=== PATIENT | female | born 1970 | race Caucasian/White ===

== ENCOUNTER → 2016-10-02 | Outpatient (REF) ==
[~2016-10-02] MED LIST: ASPIRIN 81M81 MG/TA2 PO; CLARITIN 1010 MG/TAB PO; DULERA1 ARO IH; MULTIPLE VITAMI1 CAP PO; NEXIUM 20MG20 MG PO; SYNTHROID 0.0.025 MG PO; ZANTAC 150MG T150 MG PO
== END ==
LOC: ZLAB.WCH 10:55
DX: Z01.89 Encounter for other specified special examinations (principal)

== ENCOUNTER → 2017-09-29 | Outpatient (REF) ==
[2017-09-29 09:39] LABS: THYROID STIMULATING HORMONE 4.2 uIU/mL (0.465-4.680)
== END ==
LOC: ZLAB.WCH 08:45
PROVIDERS: Family Medicine
DX: Z01.89 Encounter for other specified special examinations (principal)

== ENCOUNTER → 2018-06-18 | Outpatient (REF) | LOC: ZLAB.WCH 19:25 | DX: Z01.89 Encounter for other specified special examinations (principal) ==

== ENCOUNTER → 2019-09-24 | Outpatient (CLI) | payer OTHER | LOC: COL.PUL 08-14 13:00 | DX: R05 Cough (principal) ==

== ENCOUNTER → 2019-10-22 | Outpatient (CLI) | payer OTHER | LOC: COL.PUL 12:54 | DX: R05 Cough (principal); R06.02 Shortness of breath | CPT/HCPCS: J7674 ==

== ENCOUNTER 2020-05-08 10:41 | Inpatient (IN) | payer OTHER ==
[~2020-05-08] VITALS: Ht 157.5 cm; Wt 102.8 kg
[~2020-05-08 10:41] MED LIST changes: +PREDNISONE20 MG PO; +TUSS PO
[2020-05-08 11:23] LABS: BASO % 0.1 % (0.0-2.0); EOS % 0.1 % (0-4.0); GRAN # 9.1 (1.4-6.5); GRAN % 78.2 % (42.2-75.2); HEMATOCRIT 41.5 % (37.0-47.0); HEMOGLOBIN 14.4 g/dl (12.5-16.0); LYMPH # 1.7 (1.2-3.4); LYMPH % 14.6 % (20.0-51.0); MEAN CELL VOLUME 86 fl (80.0-100.0); MEAN CORPUSCULAR HEMOGLOBIN 30 pg (27.0-31.0); MEAN CORPUSCULAR HGB CONC 35 g/dl (33.0-37.0); MEAN PLATELET VOLUME 10.1 fl (7.4-10.4); MONO # 0.7 (0.1-0.6); MONO % 6.1 % (1.7-9.3); PLATELET COUNT 283 K/mm3 (130-400); RED BLOOD COUNT 4.83 M/mm3 (4.10-5.30); REDCELL DISTRIBUTION WIDTH-CV 13.3 % (11.5-14.5)
[2020-05-08 11:30] LABS: BILIRUBIN,TOTAL 0.5 mg/dL (0.0-1.0); CALCIUM 8.6 mg/dL (8.4-10.2); CREATININE, serum 0.63 (0.52-1.25); TOTAL PROTEIN 7.4 gm/dL (6.4-8.2)
[2020-05-08 11:35] LABS: POTASSIUM 2.6 mmol/L (3.4-5.0)
[2020-05-08 13:44] LABS: PROTHROMBIN TIME 11.2 SECONDS (9.7-12.8)
[2020-05-08 13:45] VITALS: BP 135/77; PULSE 68; TEMP 98.7
[2020-05-08 13:48] LABS: C-REACTIVE PROTEIN 4.4 mg/dL (0.0-0.9); MAGNESIUM 2.2 mg/dL (1.6-2.3)
[2020-05-08 13:52] LABS: D-DIMER < 200.00 ng/mLDDu (200-230)
[2020-05-08] MEDS ORDERED: BREO IH (13:55)
[2020-05-08] MEDS ORDERED: TESSALON PERLE200 MG PO (13:56)
[2020-05-08] MEDS ORDERED: MUCINEX 60600 MG/TA1 PO (13:57)
[2020-05-08] MEDS ORDERED: HYDRODIURIL50 MG PO (13:58)
--- NOTE | 2020-05-08 14:12 | NUR ---
PATIENT ASSESSMENT COMPLETED. SHE IS TALKATIVE BUT DOES GET TO COUGHING WHEN SHE TALKS ALONG TIME
[2020-05-08 15:05] LABS: COLLECTION METHOD CLEAN CATCH
[2020-05-08 15:10] LABS: PH 7 (5-8); SQUAMOUS EPITHELIAL 0-2 /hpf; URINE APPEARANCE Clear; URINE BACTERIA None Seen /hpf; URINE BILIRUBIN Negative (NEGATIVE); URINE BLOOD Negative (NEGATIVE); URINE COLOR Straw; URINE GLUCOSE Negative (NEGATIVE); URINE KETONE Negative (NEGATIVE); URINE LEUKOCYTE ESTERASE Negative (NEGATIVE); URINE NITRATE Negative (NEGATIVE); URINE PROTEIN(semi-quant) Negative (NEGATIVE); URINE RBC None Seen /hpf; URINE UROBILINOGEN Negative (NEGATIVE)
[2020-05-08 16:25] VITALS: BP 119/69; PULSE 73; TEMP 98.4
--- NOTE | 2020-05-08 16:31 | NUR ---
PATIENT HAS A TERRIBLE HEADACHE.PRN TYLENOL GIVEN AT THIS TIME PER HER REUQEST ALONG WITH COUGH MEDICATION
[2020-05-08 19:45] VITALS: BP 115/67; PULSE 62; TEMP 98.5
--- NOTE | 2020-05-08 20:30 | NUR ---
Initial shift assessment done- denies pain at this time, does have an occasional cough, non productive, o2 at 2L/nc, pt denies SOB, [id number]%,, repeat potassium level came back as 3.4 , will follow the protocol at this time for replacement. Respiratory did bring in an I.S and pt is using -
[2020-05-08 23:57] VITALS: BP 140/66; PULSE 59; TEMP 97.8
[2020-05-09 03:20] VITALS: BP 100/52; PULSE 58; TEMP 98.2
--- NOTE | 2020-05-09 05:23 | NUR ---
Did not get much sleep last night-- denies nausea at this time, eating some saltine crackers, o2 sats were 91-92% when sleeping so was increased to 2.5L/nc, sats now 95%-96% on the 2.5L,,, cough medicine given every 6 hours as needed.
[2020-05-09 07:21] LABS: BASO % 0.1 % (0.0-2.0); GRAN # 11.6 (1.4-6.5); HEMATOCRIT 40.5 % (37.0-47.0); HEMOGLOBIN 13.9 g/dl (12.5-16.0); LYMPH # 1.2 (1.2-3.4); LYMPH % 9.1 % (20.0-51.0); MEAN CELL VOLUME 88 fl (80.0-100.0); MEAN CORPUSCULAR HEMOGLOBIN 30 pg (27.0-31.0); MEAN CORPUSCULAR HGB CONC 34 g/dl (33.0-37.0); MEAN PLATELET VOLUME 10.3 fl (7.4-10.4); MONO # 0.6 (0.1-0.6); MONO % 4.1 % (1.7-9.3); PLATELET COUNT 303 K/mm3 (130-400); RED BLOOD COUNT 4.63 M/mm3 (4.10-5.30); REDCELL DISTRIBUTION WIDTH-CV 13.4 % (11.5-14.5)
[2020-05-09 07:32] LABS: ALBUMIN 3.9 gm/dL (3.5-5.0); BILIRUBIN,TOTAL 0.5 mg/dL (0.0-1.0); CALCIUM 8.7 mg/dL (8.4-10.2); CREATININE, serum 0.54 (0.52-1.25); POTASSIUM 3.2 mmol/L (3.4-5.0); TOTAL PROTEIN 7.4 gm/dL (6.4-8.2)
[2020-05-09 08:45] VITALS: BP 126/59; PULSE 77; TEMP 98.2
--- NOTE | 2020-05-09 09:45 | NUR ---
PATIENT ASSESSMENT COMPLETED. SHE DENIES ANY PAIN BUT DOES HAVE A COUGH TO EARLY FOR MEDICATION
--- NOTE | 2020-05-09 11:08 | NUR ---
CALLED VENITA MCKEON REGARDING [employer] AND UNABLE TO READ TELE. SHE STATES WE ARE DISCONTINUING TELE.
[2020-05-09 12:05] VITALS: BP 119/72; PULSE 68; TEMP 98.3
--- NOTE | 2020-05-09 13:54 | NUR ---
Plan to go home with spouse Myrna Jimenez as support . Patient reports that she resides in [place] with her but does not have a DPOA. Patient reports that she has a nueblizer-prn. Patient reports that Bubba Kwon is her PCPand she prefers [facility] for medications. Patient denied having any care concerns but wants to continue to work towards lung capacity. Will continue to follow care for additional needs. Offered supports for home.
--- NOTE | 2020-05-09 14:30 | NUR ---
PATIENT UP IN THE CHAIR IN HER ROOM. SHE DENIES NEEDS AT THIS TIME.
--- NOTE | 2020-05-09 16:13 | NUR ---
PATIENT CALLED OUT TO THE DESK REPORTING FEELING A LITTLE DISORIENTED AND DIZZY AFTER GOING TO THE RESTROOM. I HAVE TURNED HER OXYGEN BACK UP TO 2.5L. HER OXYGEN SAT WAS 95% ON THE 1.5. SHE IS NOW RESTING IN BED. VSS. SHE WILL CALL THE NEXT TIME SHE GETS UP OUT OF BED
[2020-05-09 16:15] VITALS: BP 140/76; PULSE 73; TEMP 98.1
--- NOTE | 2020-05-09 16:22 | NUR ---
NOTIFIED DR. ROQUE OF PATIENT STATUS. WILL CONTINUE TO MONITOR HER
--- NOTE | 2020-05-09 17:00 | NUR ---
PATIENT REPORTS THAT SHE THINKS THAT THE FEELING THAT SHE EXPERIENCED WAS BECAUSE SHE HAD JUST TAKEN 2 PUFFS OFF HER ALBUTERAL INHALER AND SOMETIMES THAT HAPPENS AT HOME ALSO. SHE FEELS THAT THE INCENTIVE SPIROMETER IS WORKING WELL TO HELP OPEN HER LUNGS UP AND SHE WAS ABLE TO TAKE TWO DEEP INHALES WITH THE ALBUTEROL. FEELING WELL NOW.
--- NOTE | 2020-05-09 17:45 | NUR ---
PATIENT UP IN BED EATING SUPPER SHE DENIES ANY TINGLING IN HER FACE AND IS FEELING BETTER AGAIN. NO OTHER NEEDS AT THIS TIME
[2020-05-09 20:05] VITALS: BP 109/60; PULSE 68; TEMP 98.2
--- NOTE | 2020-05-09 20:30 | NUR ---
Initial shift assessment done- denies pain/SOB,, states feeling better today- afebrile,, o2 at 2L/nc with sats 94%- no requests at this time.
[2020-05-09 23:56] VITALS: BP 108/60; PULSE 55; TEMP 97.6
[2020-05-10] VITALS (7 sets, daily range): BP systolic 103–131; BP diastolic 58–72; PULSE 52–66; TEMP 97.5–98.6
--- NOTE | 2020-05-10 06:23 | NUR ---
Quiet night-- Did get Zofran x1 during the night for nausea- afebrile
[2020-05-10 08:12] LABS: BASO % 0.1 % (0.0-2.0); EOS % 0.1 % (0-4.0); GRAN # 7.4 (1.4-6.5); GRAN % 73.2 % (42.2-75.2); HEMATOCRIT 37.6 % (37.0-47.0); LYMPH % 19.4 % (20.0-51.0); MEAN CELL VOLUME 89 fl (80.0-100.0); MEAN CORPUSCULAR HEMOGLOBIN 31 pg (27.0-31.0); MEAN CORPUSCULAR HGB CONC 35 g/dl (33.0-37.0); MEAN PLATELET VOLUME 10.2 fl (7.4-10.4); MONO # 0.6 (0.1-0.6); MONO % 6.1 % (1.7-9.3); PLATELET COUNT 302 K/mm3 (130-400); RED BLOOD COUNT 4.24 M/mm3 (4.10-5.30); REDCELL DISTRIBUTION WIDTH-CV 13.5 % (11.5-14.5)
[2020-05-10 08:21] LABS: ALBUMIN 3.3 gm/dL (3.5-5.0); BILIRUBIN,TOTAL 0.4 mg/dL (0.0-1.0); CALCIUM 8.2 mg/dL (8.4-10.2); CREATININE, serum 0.55 (0.52-1.25); POTASSIUM 3.4 mmol/L (3.4-5.0); TOTAL PROTEIN 6.4 gm/dL (6.4-8.2)
--- NOTE | 2020-05-10 09:00 | NUR ---
Shift assessment complete. Pt sitting up in bed. Aid called stating pt was satting 83-88% on 2.5L. O2 increased to 3.5L with sats not rising above 88%. O2 increased to 4L, sats increased to low 90s after a few minutes. At this time, pt on 4L with sats 90-92%. Reports mild SOA at this time but improving. Reports feeling more fatigued today but states she did not sleep well last night. Heart RRR, lungs CTA, A&Ox4. Denies pain or nausea. Continuing to monitor.
--- NOTE | 2020-05-10 19:18 | NUR ---
Pt remained on 4L throughout day with sats remaining 90-92%. No complaints of SOA but pt does feel more fatigued today. No other complaints.
[2020-05-11 04:14] VITALS: BP 111/55; PULSE 56; TEMP 97.7
--- NOTE | 2020-05-11 06:31 | NUR ---
RESTING QUIETLY. NO N/V. NO c/o PAIN. LUNGS SOUND A BIT DIMINISHED BUT NO DYSPNEA AT REST. O2 TURNED DOWN TO 3 liters VIA N.C.
[2020-05-11 06:57] LABS: HEMATOCRIT 38.8 % (37.0-47.0); HEMOGLOBIN 13.2 g/dl (12.5-16.0); MEAN CELL VOLUME 88 fl (80.0-100.0); MEAN CORPUSCULAR HEMOGLOBIN 30 pg (27.0-31.0); MEAN CORPUSCULAR HGB CONC 34 g/dl (33.0-37.0); MEAN PLATELET VOLUME 9.7 fl (7.4-10.4); PLATELET COUNT 354 K/mm3 (130-400); REDCELL DISTRIBUTION WIDTH-CV 13.4 % (11.5-14.5)
[2020-05-11 07:07] LABS: ALBUMIN 3.3 gm/dL (3.5-5.0); BILIRUBIN,TOTAL 0.4 mg/dL (0.0-1.0); CALCIUM 8.3 mg/dL (8.4-10.2); CREATININE, serum 0.62 (0.52-1.25); POTASSIUM 3.4 mmol/L (3.4-5.0); TOTAL PROTEIN 6.4 gm/dL (6.4-8.2)
[2020-05-11 08:13] VITALS: BP 117/68; PULSE 51; TEMP 97.9
[2020-05-11 08:24] LABS: BAND 3 % (0-10); LYMPHOCYTE 20 % (20.0-51.0); NEUTROPHILS 69 % (42.0-75.2)
[2020-05-11 08:25] LABS: PLATELET ESTIMATE NORMAL (NORMAL)
--- NOTE | 2020-05-11 09:46 | NUR ---
Pt assessment complete and charted, medications administered per mar. Pt A&O, independent in room, on 3L NC. Pt has RAC INT IV that flushes w/o issue. Pt denies any general pain, dizziness, N/V/D, chest pain, numbness or tingling. No edema present, HRRR, LS bases diminished, UL cta. No further needs expressed at this time. Belongings delivered from . Call light within reach.
[2020-05-11 11:36] VITALS: BP 126/85; PULSE 74; TEMP 98.3
[2020-05-11 16:40] VITALS: BP 129/77; PULSE 52; TEMP 98.5
--- NOTE | 2020-05-11 18:46 | NUR ---
Pt doing well, no issues noted, O2 needs titrated to 2l NC.
[2020-05-11 19:51] VITALS: BP 124/68; PULSE 57; TEMP 98.4
--- NOTE | 2020-05-11 21:00 | NUR ---
Pt assessment complete. Pt is sitting up in bed upon entry, she is A/O x4. She denies any pain. No SOB, productive cough present. She denies N/V. Pt does report having hard stools and requests stool softners d/t hemrrhoids. Pt also concerned as she does not believe she rec'd Remdesivir today. Verified this through the MAR and contacted [facility]. [facility] notified and reported they will look into this in the AM. Pt notified of the POC. Pt reports she was tested at [facility] for Covid. No further needs at this time. Call light within reach.
[2020-05-11 23:54] VITALS: BP 122/76; PULSE 51; TEMP 98
[2020-05-12 04:18] VITALS: BP 128/66; PULSE 55; TEMP 97.4
[2020-05-12 07:49] LABS: HEMATOCRIT 40.9 % (37.0-47.0); HEMOGLOBIN 13.7 g/dl (12.5-16.0); MEAN CELL VOLUME 89 fl (80.0-100.0); MEAN CORPUSCULAR HEMOGLOBIN 30 pg (27.0-31.0); MEAN CORPUSCULAR HGB CONC 34 g/dl (33.0-37.0); PLATELET COUNT 386 K/mm3 (130-400); RED BLOOD COUNT 4.61 M/mm3 (4.10-5.30); REDCELL DISTRIBUTION WIDTH-CV 13.5 % (11.5-14.5)
[2020-05-12 07:51] LABS: ALBUMIN 3.3 gm/dL (3.5-5.0); BILIRUBIN,TOTAL 0.4 mg/dL (0.0-1.0); CALCIUM 8.4 mg/dL (8.4-10.2); CREATININE, serum 0.59 (0.52-1.25); POTASSIUM 3.7 mmol/L (3.4-5.0); TOTAL PROTEIN 6.4 gm/dL (6.4-8.2)
[2020-05-12 08:15] VITALS: BP 99/59; PULSE 62; TEMP 97.7
[2020-05-12 08:58] LABS: BAND 4 % (0-10); LYMPHOCYTE 24 % (20.0-51.0); NEUTROPHILS 69 % (42.0-75.2); PLATELET ESTIMATE NORMAL (NORMAL)
--- NOTE | 2020-05-12 09:36 | NUR ---
Assessment complete. Patient sitting up in bed on entry. States she feels so much better. No O2 at this time, RT took her off this AM. No complaints of pain or discomfort. She is aware of her POC and that her remdesivir has been fixed. No other needs were expressed at this time. Call light is in reach.
[2020-05-12 12:23] VITALS: BP 117/67; PULSE 93; TEMP 98.5
--- NOTE | 2020-05-12 16:52 | NUR ---
Patient has had a good day today. Still feeling great. Remains independent in the room. Very minimal needs were expressed throughout the day other than her want to leave. She is aware of her POC at this time. Will continue to monitor. CAll light is in reach.
[2020-05-12 17:04] VITALS: BP 123/81; PULSE 72; TEMP 98.7
[2020-05-12 19:57] VITALS: BP 135/85; PULSE 73; TEMP 98.4
--- NOTE | 2020-05-12 20:30 | NUR ---
Initial shift assessment done- pleasant, states feeling good, RA sats 94-95%, sitting up in chair--states going home tomorrow ,, no requests
[2020-05-12 23:41] VITALS: BP 142/83; PULSE 71; TEMP 98.4
[2020-05-13 04:19] VITALS: BP 126/59; PULSE 64; TEMP 98.4
--- NOTE | 2020-05-13 04:45 | NUR ---
Quiet night- no requests, VSS, afebrile
[2020-05-13 07:44] VITALS: BP 130/75; PULSE 73; TEMP 98.6
--- NOTE | 2020-05-13 09:58 | NUR ---
Assessment complete. Patient sitting up in recliner on entry, very plesant, eager to go home today. States that she still feels great. No complaints of pain or discomfort. IV site remains intact, last dose of remdesivir is running at this time. She is aware that orders will need to be finalized prior to her discharge as they are no rounding yet. No other needs were expressed at this time. Call light is in reach.
[2020-05-13 11:31] VITALS: BP 114/75; PULSE 85; TEMP 99.2
[2020-05-13] MEDS ORDERED: DECADRON6 MG PO (11:50)
--- NOTE | 2020-05-13 14:45 | NUR ---
Patient left the floor at this time. Discharge instructions were discussed. No further questions or concerns.
== END 2020-05-13 14:47 | disposition home or self-care (01) | DRG 177 ==
LOC: COL.ER 10:41 → MEDICAL 11:53
PROVIDERS: Family Medicine; ADMIT Internal Medicine
PROC: XW033E5 Introduction of Remdesivir Anti-infective into Peripheral Vein, Percutaneous Approach, New Technology Group 5 (ICD-10-PCS; principal; 2020-05-08)
DX: U07.1 COVID-19 (principal); J96.01 Acute respiratory failure with hypoxia; J12.82 Pneumonia due to coronavirus disease 2019; I42.2 Other hypertrophic cardiomyopathy; E03.9 Hypothyroidism, unspecified; J45.909 Unspecified asthma, uncomplicated; K21.9 Gastro-esophageal reflux disease without esophagitis; I10 Essential (primary) hypertension; E87.6 Hypokalemia
CPT/HCPCS: 99222-AI; 99232-AI; 99233-AI; A9284; J0696; J1650; J2405; J3480; J7050; J7120; J8540

== ENCOUNTER 2021-05-31 06:59 | Day surgery (SDC) | payer OTHER ==
[~2021-05-31] VITALS: Ht 157.5 cm; Wt 111.0 kg
[~2021-05-31 06:59] MED LIST changes: +BREO IH; +DECADRON6 MG PO; +HYDRODIURIL50 MG PO; +MUCINEX 60600 MG/TA1 PO; +TESSALON PERLE200 MG PO
[2021-05-31] MEDS ORDERED: PRILOTC PO (07:19)
[2021-05-31 07:26] VITALS: BP 151/83; PULSE 71; TEMP 97.9
[2021-05-31 10:50] VITALS: BP 157/66; PULSE 67; TEMP 97.9
--- NOTE | 2021-05-31 10:50 | NUR ---
Patient arrived back into [facility] from [facility]. Report received from MIKE Mcmanus. Patient alert and awake. CMS intact to LLE. Patient reports no nausea and pain is tolerable per patient. Patient requesting blueberry muffin and orange juice at this time. at bedside with patient.
[2021-05-31 11:05] VITALS: BP 151/83; PULSE 67; TEMP 97.9
[2021-05-31 11:20] VITALS: BP 153/85; PULSE 77
--- NOTE | 2021-05-31 11:20 | NUR ---
Patient tolerated food and drink well with no complaints of pain. Patient states that she feels like she needs to use the restroom. Patient escorted to restroom via ambulation. Tolerating walking well. States pain is tolerable while walking.
--- NOTE | 2021-05-31 11:30 | NUR ---
Patient able to void successfully. Patient states that she feels like she is able to go home safely. Pain continues to be 2-4/10 which patient states as tolerable. No nausea with food and drink. Patient to get dressed with assistance from .
--- NOTE | 2021-05-31 11:35 | NUR ---
Patient dressed. Meets discharge criteria. Went through discharge instructions with patient and . Questions answered. Verbalized understanding to educations. Patient's left to get car. Patient escorted to patient entrance via wheelchair. Patient got into personal vehicle unassistance and patient left in the care of her , Myrna.
== END 2021-05-31 11:45 | disposition home or self-care (01) ==
LOC: SDCO 06:59
DX: M23.322 Other meniscus derangements, posterior horn of medial meniscus, left knee (principal); M94.262 Chondromalacia, left knee; M17.2 Bilateral post-traumatic osteoarthritis of knee; I10 Essential (primary) hypertension; J45.909 Unspecified asthma, uncomplicated; E07.9 Disorder of thyroid, unspecified; Z79.890 Hormone replacement therapy; Z79.899 Other long term (current) drug therapy
CPT/HCPCS: J0690; J1100; J1885; J2405; J2704; J3010; J7120

== ENCOUNTER 2023-10-29 14:27 | Emergency (ER) | payer OTHER ==
[~2023-10-29] VITALS: Ht 157.5 cm; Wt 90.9 kg
[~2023-10-29 14:27] MED LIST changes: +PRILOTC PO
[2023-10-29 14:37] VITALS: TEMP 97.9
[2023-10-29] MEDS ORDERED: Ketorolac 30 MG/ML VIAL IM ONE (16:15)
[2023-10-29] MEDS ORDERED: MOBIC 7.5MG7.5 MG PO (16:17)
[2023-10-29 16:36] VITALS: BP 134/85; PULSE 78
== END 2023-10-29 16:48 | disposition home or self-care (01) ==
LOC: COL.ER 14:27
DX: M75.22 Bicipital tendinitis, left shoulder (principal)
CPT/HCPCS: J1885; J2360